=== PATIENT | female | born 1955 ===

== ENCOUNTER 2017-12-07 09:14 | Emergency (ER) | payer MEDICARE, OTHER ==
[2017-12-07 09:14] VITALS: BMI 24.7
[2017-12-07 09:43] VITALS: RESP 18
--- NOTE | 2017-12-07 09:50 | C.PDOC ---
History Of Present Illness 62 year old female with a Hx of migraines presents to the ER with a complaint of a headache that began last night. Patient states she has been stressed about school and developed a headache, she normally takes fioricet as soon as she feels the headache coming but ran out of her fioricet. She took panadol at home with no relief. Denies nausea, vomiting, or fever. Time Seen by Provider: 12/07/17 09:36 Chief Complaint (Nursing): Med Refill History Per: Patient History/Exam Limitations: no limitations Onset/Duration Of Symptoms: Hrs Current Symptoms Are (Timing): Still Present Recent travel outside of the [place]: No Past Medical History Reviewed: Historical Data, Nursing Documentation, Vital Signs Vital Signs: Last Vital Signs Temp 97.8 F 12/07/17 09:24 Pulse 103 H 12/07/17 09:24 Resp 18 12/07/17 09:24 BP 154/93 H 12/07/17 09:24 Pulse Ox 95 12/07/17 09:24 - Medical History PMH: Anxiety, Asthma, Back Problems (''curvature''), Diabetes, Migraine Surgical History: Family History: States: Unknown Family Hx - Social History Hx Tobacco Use: Yes Hx Alcohol Use: No Hx Substance Use: No - Immunization History Hx Tetanus Toxoid Vaccination: No Hx Influenza Vaccination: No Hx Pneumococcal Vaccination: No Review Of Systems Constitutional: Negative for: Fever Eyes: Negative for: Vision Change Gastrointestinal: Negative for: Nausea, Vomiting Musculoskeletal: Negative for: Neck Pain Neurological: Positive for: Headache Physical Exam - Physical Exam Appears: Non-toxic Skin: Normal Color, Warm, Dry Head: Atraumatic, Normacephalic Eye(s): bilateral: Normal Inspection, PERRL, EOMI Oral Mucosa: Moist Neck: Normal, No Midline Cervical Tenderness, No Paracervical Tenderness, Supple Chest: Symmetrical, No Tenderness Cardiovascular: Rhythm Regular Respiratory: Normal Breath Sounds, No Rales, No Rhonchi, No Wheezing Extremity: Normal ROM (x4) Neurological/Psych: Oriented x3, Normal Speech, Normal Motor, Normal Sensation Gait: Steady ED Course And Treatment O2 Sat by Pulse Oximetry: 95 (Room air) Pulse Ox Interpretation: Normal Progress Note: Fioricet administered. Patient reports improvement of pain, she is resting comfortably in the ER in no acute distress, vitals are stable, will discharge home with Rx and instructions to follow up with PMD. Disposition - Disposition Referrals: [facility] [Outside] Disposition: HOME/ ROUTINE Disposition Time: 10:38 Condition: STABLE Additional Instructions: Follow up in Clinic within 1-2 days. Return to ED if feel worse. Prescriptions: Acetaminophen/Butalbital/Caf [Fioricet] 1 tab PO TID PRN #20 tab PRN Reason: Headache Instructions: Migraine Headache (DC) Forms: [place] [employer] (Bengali), School Excuse - Clinical Impression Clinical Impression: Headache - PA / END POLISHER / Resident Statement MD/DO has reviewed & agrees with the documentation as recorded. - Scribe Statement The provider has reviewed the documentation as recorded by the Scribkirti Gill All medical record entries made by the Yadiraibkirti were at my direction and personally dictated by me. I have reviewed the chart and agree that the record accurately reflects my personal performance of the history, physical exam, medical decision making, and the department course for this patient. I have also personally directed, reviewed, and agree with the discharge instructions and disposition.
[2017-12-07] MEDS ORDERED: Apap-Butalbital-Caffeine 325-50-40mg Tab PO STA (09:56)
[2017-12-07] MEDS ORDERED: Apap-Butalbital-Caffeine 325-50-40mg Tab ONE (10:16)
[2017-12-07 10:47] VITALS: BP 137/83; PULSE 86; TEMP 97.5
[2017-12-07 13:05] VITALS: O2SAT 95
== END 2017-12-07 10:54 | disposition home or self-care (01) ==
LOC: C.ER 09:14
DX: R51 Headache (principal)